=== PATIENT | male | born 1980 | race Caucasian/White ===

== ENCOUNTER 2017-06-23 18:47 | Emergency (ER) | payer OTHER ==
[~2017-06-23] VITALS: Ht 190.5 cm; Wt 137.0 kg
[~2017-06-23 18:47] MED LIST: AUGMENTIN500 MG PO; BACLOFEN10 MG PO; FLEXERIL10 MG PO; LIDODERM 5% P1 PATCH TD; LISINOPRIL10 MG PO; MOTRIN800 MG PO; NAPROSYN500 MG PO; NORCO 7.5/321 TABLET PO; PERCOCET 5/31 TABLET PO; TRAMADOL HCL50 MG PO
[2017-06-23] MEDS ORDERED: FLEXERIL10 MG PO (20:59)
[2017-06-23 21:15] VITALS: BP 166/89
== END 2017-06-23 21:17 | disposition home or self-care (01) ==
LOC: EME 18:47
PROC: 3E0U3BZ Introduction of Anesthetic Agent into Joints, Percutaneous Approach (ICD-10-PCS; principal; 2017-06-23)
DX: M62.830 Muscle spasm of back (principal); I10 Essential (primary) hypertension; M25.511 Pain in right shoulder; F17.200 Nicotine dependence, unspecified, uncomplicated; T46.5X6A Underdosing of other antihypertensive drugs, initial encounter; Z91.128 Patient's intentional underdosing of medication regimen for other reason; E78.5 Hyperlipidemia, unspecified
CPT/HCPCS: 99281; 99284; S0020

== ENCOUNTER 2018-06-12 17:10 | Emergency (ER) | payer OTHER ==
[~2018-06-12] VITALS: Ht 190.5 cm; Wt 141.0 kg
[2018-06-12] MEDS ORDERED: LIDODERM 5% P1 PATCH TD (18:03)
[2018-06-12 19:13] LABS: APPEARANCE CLEAR ((CLEAR)); BILIRUBIN NEGATIVE; BLOOD NEGATIVE; COLOR YELLOW ((YELLOW)); GLUCOSE (STRIP) NEGATIVE; KETONES NEGATIVE; LEUKOCYTES TRACE; NITRITE NEGATIVE; PROTEIN (STRIP) 100; SPECIFIC GRAVITY 1.026 (1.000-1.030)
[2018-06-12 19:27] LABS: BACTERIA RARE /HPF; EPITHELIAL CELLS RARE /HPF; MUCUS TRACE /LPF; UCUL ADDED? YES
[2018-06-12 20:37] LABS: HEMATOCRIT 48.8 % (38.0-50.0); HEMOGLOBIN 16.6 G/DL (12.5-16.6); MCH 29.4 PG (29.0-34.0); MCV 86.4 FL (86-99); PLATELET COUNT 316 K/uL (156-360); RBC DIS.WIDTH-CV 12.5 % (11.8-14.6); RBC DIS.WIDTH-SD 39.3 % (39-53); RED BLOOD COUNT 5.65 M/uL (4.00-5.50); WHITE BLOOD COUNT 14.7 K/uL (4.1-10.2)
[2018-06-12 20:46] LABS: CHLORIDE 102 mEq/L (99-109); POTASSIUM 4.6 mEq/L (3.7-5.4); SODIUM 140 mEq/L (136-147)
[2018-06-12 20:47] LABS: GLUCOSE 124 mg/dL (70-99)
[2018-06-12 20:51] LABS: CREATININE 0.8 mg/dL (0.6-1.3); GFR ESTIMATE (CALCULATED) > 59 mL/min/ (58.99-99999)
[2018-06-12 20:52] LABS: UREA NITROGEN (BUN) 10 mg/dL (9-23)
[2018-06-12] MEDS ORDERED: CIPRO500 MG PO (21:46)
[2018-06-12 21:56] VITALS: BP 137/84
== END 2018-06-12 21:58 | disposition home or self-care (01) ==
LOC: EME 17:10
PROVIDERS: Physician Assistant Medical
DX: S39.012A Strain of muscle, fascia and tendon of lower back, initial encounter (principal); X58.XXXA Exposure to other specified factors, initial encounter; N30.90 Cystitis, unspecified without hematuria; M51.36 Other intervertebral disc degeneration, lumbar region; F17.200 Nicotine dependence, unspecified, uncomplicated; Z91.030 Bee allergy status
CPT/HCPCS: 74176; 80048; 81003; 85027; 87086; 99281; 99285; J2270